=== PATIENT | male | born 1995 | race Caucasian/White ===

== ENCOUNTER 2017-05-29 20:20 | Emergency (ER) | payer BC ==
[2017-05-29 20:26] VITALS: RESP 16; TEMP 98.1
--- NOTE | 2017-05-29 20:27 | EDPHY ---
H & P Stated Complaint: testicular pain Time Seen by Provider: 05/29/17 20:26 HPI/ROS: CHIEF COMPLAINT: Testicular pain HISTORY OF PRESENT ILLNESS: 22-year-old male history of epididymitis in the ER via private vehicle complaining of right testicular pain since 05/11/2017. He was seen at [facility] on May 13 in treated for epididymitis. He has completed a 10 day course of doxycycline and notes that his right testicular pain continues. He has noticed new left testicle pain for the past 2 days. Overall atraumatic although he does ride his bicycle on a regular basis but denies acute straddle injury. Denies urinary abnormality such as dysuria hematuria , increased frequency or urethral discharge. Denies abdominal pain. Denies inguinal mass or tenderness. No flu-like symptoms. He has not followed up with urologist others planning on doing so. REVIEW OF SYSTEMS: A ten point review of systems was performed and is negative with the exception of the items mentioned in the HPI PAST MEDICAL & SURGICAL HISTORY: prior history of epididymitis SOCIAL HISTORY: nonsmoker PHYSICAL EXAM (Prior to examination, patient consented to physical exam, hands were washed and my usual and customary physical exam procedures followed) 1) GENERAL: Well-developed, well-nourished, alert and oriented. Appears to be in no acute distress. 2) HEAD: Normocephalic, atraumatic 3) HEENT: Sclera anicteric. 4) NECK: Full range of motion, no meningeal signs. 5) LUNGS: Clear auscultation bilaterally, no wheezes, no rhonchi, no retractions. 6) HEART: Regular rate and rhythm, no murmur, no heave, no gallop. 7) ABDOMEN: No guarding, no rebound, no focal tenderness, negative McBurney's, negative Drake's, negative Rovsing's, negative peritoneal sign, I am unable to elicit any abdominal pain. No mass 8) MUSCULOSKELETAL: Moving all extremities. 9) BACK: No CVA tenderness, no midline vertebral tenderness, no fluctuance, no step-off, no obvious trauma, no visual or palpable abnormality. 10) SKIN: No rash, no petechiae. 11) : Normal male external genitalia, circumcised, no urethral discharge, bilateral testicles nontender, non high-riding, bilateral cremasteric reflex present and brisk. Perineum nontender. Bilateral inguinal examination is unremarkable with no mass, no hernia . DIFFERENTIAL DIAGNOSIS: Testicular pain including but not limited to epididymitis, orchitis, referred pain from kidney stone, inguinal hernia, and torsion of the testicle. - Personal History Current Tetanus/Diphtheria Vaccine: Unsure Current Tetanus Diphtheria and Acellular Pertussis (TDAP): Unsure - Medical/Surgical History Hx Asthma: Yes Hx Chronic Respiratory Disease: No Hx Diabetes: No Hx Cardiac Disease: No Hx Renal Disease: No Hx Cirrhosis: No Hx Alcoholism: No Hx HIV/AIDS: No Hx Splenectomy or Spleen Trauma: No Other PMH: epididimitis, asthma - Social History Smoking Status: Never smoked Constitutional: Initial Vital Signs Temperature (C) 36.7 C 05/29/17 20:23 Heart Rate 59 L 05/29/17 20:23 Respiratory Rate 16 05/29/17 20:23 Blood Pressure 148/73 H 05/29/17 20:23 O2 Sat (%) 97 05/29/17 20:23 O2 Delivery Mode Room Air Allergies/Adverse Reactions: No Known Allergies Allergy (Unverified 05/29/17 20:23) Home Medications: Medication Instructions Recorded Ibuprofen [Motrin (*)] 600 mg PO Q6 #15 tab 05/29/17 Medical Decision Making - Diagnostics Imaging Results: Imaging Impressions Testicular Ultrasound 05/29/17 20:35 Impression: Essentially normal testicular ultrasound with no source for pain identified. There has been no significant change from the prior study. Results called and discussed with Caitlin Galarza on 05/29/2017 at 22:00 Images reviewed by myself - Data Points Laboratory Results: 05/29/17 05/29/17 20:40 20:40 Urine Color YELLOW Urine Appearance CLEAR Urine pH 5.0 (5.0-7.5) Ur Specific [place] 1.021 (1.002-1.030) Urine Protein NEGATIVE (NEGATIVE) Urine Ketones NEGATIVE (NEGATIVE) Urine Blood 1+ H (NEGATIVE) Urine Nitrate NEGATIVE (NEGATIVE) Urine Bilirubin NEGATIVE (NEGATIVE) Urine Urobilinogen NEGATIVE EU EU (0.2-1.0) Ur Leukocyte Esterase NEGATIVE (NEGATIVE) Urine RBC 1-3 /hpf /hpf (0-3) Urine WBC NONE SEEN /hpf /hpf (0-3) Ur Epithelial Cells NONE SEEN /lpf /lpf (NONE-1+) Urine Glucose NEGATIVE (NEGATIVE) C.trachomatis RNA (TMA) Pending N.gonorrhoeae RNA (TMA) Pending Departure - Departure Disposition: Home, Routine, Self-Care Clinical Impression: Hydrocele in adult Condition: Good Instructions: Testicle Pain (ED), Hydrocele (ED) Additional Instructions: Recommend you wear an athletic supporter. Recommend you follow up with a urologist. Return to the ER if you develop new or worsening testicular pain. Recommend ibuprofen Referrals: Baltazar Stark MD [Medical Doctor] - 2-3 days, call for appt. Prescriptions: Ibuprofen [Motrin (*)] 600 mg PO Q6 #15 tab
[2017-05-29 20:55] LABS: COLOR YELLOW; LEUKOCYTE ESTERASE,URINE NEGATIVE (NEGATIVE); NITRITE,URINE NEGATIVE (NEGATIVE)
[2017-05-29 21:00] LABS: WBC,URINE NONE SEEN /hpf (0-3)
[2017-05-29 22:32] VITALS: BP 128/79; PULSE 88; O2SAT 96
[2017-05-31 12:10] LABS: CHLAMYDIA AMPLIFICATION GENPRB NEGATIVE (NEGATIVE)
== END 2017-05-29 22:31 | disposition home or self-care (01) ==
DX: N43.3 Hydrocele, unspecified (principal); J45.909 Unspecified asthma, uncomplicated